=== PATIENT | female | born 1970 | race Caucasian/White ===

== ENCOUNTER 2019-05-06 18:49 | Emergency (ER) | payer MEDICAID ==
[2019-05-06] MEDS: NICARDipine HCL 30 MG CAPSULE PO (19:09)
[2019-05-06] MEDS: predniSONE 20 MG TAB PO (19:09)
== END 2019-05-06 19:35 | disposition home or self-care (01) ==
LOC: E/R 18:49
DX: G51.0 Bell's palsy (principal); I10 Essential (primary) hypertension; R40.2142 Coma scale, eyes open, spontaneous, at arrival to emergency department; R40.2252 Coma scale, best verbal response, oriented, at arrival to emergency department; R40.2362 Coma scale, best motor response, obeys commands, at arrival to emergency department
CPT/HCPCS: 99283; J7512